=== PATIENT | female | born 1950 | race Caucasian/White ===

== ENCOUNTER 2022-03-18 10:52 | Outpatient (REF) | payer MEDICARE, SELFPAY ==
[2022-03-18 14:21] LABS: Hematocrit 40.6 % (37.0-47.0); Hemoglobin 13.3 g/dl (12.0-16.0); Mean Corpuscular HGB Conc 32.8 g/dl (31.0-35.0); Mean Corpuscular Hemoglobin 30.6 pg (27.0-33.0); Mean Corpuscular Volume 93.3 fL (80.0-98.0); Mean Platelet Volume 9.4 fL (9.4-12.3); Platelet Count 236 X10*3/uL (160-400); Red Blood Count 4.35 X10*6/uL (4.20-5.50); Red Cell Distribution Width 13.1 % (11.0-16.0); White Blood Count 5.4 X10*3/uL (4.8-10.8)
[2022-03-18 15:02] LABS: Alanine Aminotransferase 31 U/L (0-31); Alkaline Phosphatase 81 U/L (39-117); Anion Gap 14 (12-20); Aspartate Amino Transferase 28 U/L (5-31); Bilirubin Total 0.6 mg/dL (0.0-1.0); Blood Urea Nitrogen 14 mg/dL (9-16); Calcium 8.8 mg/dL (8.4-10.2); Carbon Dioxide 28 mmol/L (22-29); Chloride 106 mmol/L (96-108); Estimated Glomerular Filt Rate > 60; Glucose Fasting 94 mg/dL (60-99); Potassium 4.5 mmol/L (3.3-5.1); Sodium 143 mmol/L (135-145); Total Protein 6.5 g/dL (6.5-8.0)
[2022-03-18 15:23] LABS: TSH reflex Free T4 0.39 uIU/mL (0.32-4.0)
[2022-03-18 15:38] LABS: Folate 17.1 ng/mL (> or = 4.0); Vitamin B12 380 pg/mL (200-900)
[2022-03-22 12:51] LABS: Vitamin D 25-OH, D2 <4 ng/mL; Vitamin D 25-OH, D3 29 ng/mL; Vitamin D 25-OH, Total 29 ng/mL (30-100)
== END 2022-03-18 10:53 | disposition home or self-care (01) ==
LOC: HO.WFDLDS 10:52
PROVIDERS: Visit Provider Hospitalist
DX: Z00.00 Encounter for general adult medical examination without abnormal findings (principal); Z13.9 Encounter for screening, unspecified
CPT/HCPCS: 36415; 80053; 82306; 82607; 82746; 84443; 85027

== ENCOUNTER 2023-08-17 15:55 | Outpatient (AMB) | payer MEDICARE, SELFPAY ==
--- NOTE | 2023-08-17 15:59 | MHC.PC.OV ---
Vital Signs 08/17/23 16:02 Height 5 ft 6 in Weight 140 lb BMI 22.6 BP 136/82 Blood Pressure Location Lt brachial Position Sitting Pulse 79 Pulse Source Pulse Oximeter Pulse Oximetry (%) 97 Oxygen Delivery Method Room Air Intake Visit Reasons: PE/ transfer of care from [facility] Note: Patient is here as a transfer of care, needs primary care doctor. Allergies adhesive tape Adverse Reaction (Intermediate, Verified 08/17/23 16:03) Itching Tobacco use date assessed: 08/17/23 Fall risk assessment: No Falls in past year Last assessed Fall Risk: 08/17/23 HPI PE/ transfer of care from [facility] Details Transfer of Care Prior PCP:?SV Last office visit/CPE: Acute issue(s): PMHx: HLD, Anxiety/Depression, Vitamin D deficiency, learning disability, Breast CA SurgHx: Hysterectomy, Breast CA surgeries, L leg surgery FHx: Dad: Heart disease. Mom: CVA SocHx: Nonsmoker. EtOH none. Recent RSV & Flu shot. Covid shot last year. PFSH Medical History Learning disability High cholesterol Family History Mother Arthritis Other Mental health disorder Social History Housing: Condominium Patient Tobacco Use Status: Never used Tobacco e-Cigarette/Vaping Use: Never Used Current occupational status: retired Questionnaire PHQ-9 Over the last 2 weeks, how often have you been bothered by any of the following problems? 1. Little interest or pleasure in doing things: not at all 2. Feeling down, depressed, or hopeless: not at all 3. Trouble falling or staying asleep, or sleeping too much: not at all 4. Feeling tired or having little energy: not at all 5. Poor appetite or overeating: not at all 6. Feeling bad about yourself - or that you are a failure or have let yourself or your family down: not at all 7. Trouble concentrating on things, such as reading the newspaper or watching television: not at all 8. Moving or speaking so slowly that other people could have noticed. Or the opposite - being so fidgety or restless that you have been moving around a lot more than usual: not at all 9. Thoughts that you would be better off or of hurting yourself in some way: not at all Total score: 0 Source: Developed by Drs. Sabas Klein, Ebony Sullivan, Afshin Patricio and colleagues, with an educational edmundo from [employer]. Thrive Questionnaire Date Thrive assessed: 08/17/23 I am a: Patient What is your living situation today?: I have a steady place to live Within the past 12 months, did the food you bought not last and you didn't have the money to get more?: Never true Within the past 12 months, did you worry whether your food would run out before you got money to buy more?: Never true Do you have trouble paying for medicines?: No Do you have trouble getting transportation to medical appointments?: No Do you have trouble paying your heating and electricity bill?: No Do you have trouble taking care of your child, family member or friend?: No Do you have trouble with day-to-day activities such as bathing, preparing meals, shopping, managing finances, etc.?: No Are you currently unemployed and looking for a job?: No Are you interested in more education?: No THRIVE Score: 0 AUDIT C Alcohol Use Questionnaire (AUDIT-C) 1. How often do you have a drink containing alcohol?: Never 3. How often do you have six or more drinks on one occasion?: Never Total Score: 0 JENNIFER-7 AMB Questionnaire JENNIFER-7 Date JENNIFER - 7 assessed: 08/17/23 Feeling nervous, anxious, or on edge: 1 = Several days Not being able to stop or control worryin = Several days Worrying too much about different things: 1 = Several days Trouble relaxin = Not at all Being so restless that it is hard to sit still: 0 = Not at all Becoming easily annoyed or irritable: 0 = Not at all Feeling afraid as if something awful might happen: 1 = Several days Total JENNIFER-7 score (0-4 normal; 5-9 mild; 10-14 moderate; 15-21 severe): 4 Source: Developed by Ebony Easno Kurt Kroenke and colleagues, with an educational edmundo from [employer]. Physical exam (Primary Care) Vital Signs: Last Vital Signs Pulse 79 08/17/23 16:02 BP 136/82 08/17/23 16:02 Pulse Ox 97 08/17/23 16:02 Oxygen Delivery Method Room Air 08/17/23 16:02 BMI result Body Mass Index 22.6 Tobacco/Smoking Status: Tobacco use Status Tobacco use date assessed 08/17/23 08/17/23 16:09 Patient Tobacco Use Status Never used Tobacco 08/17/23 16:01 e-Cigarette/Vaping Use Never Used 08/17/23 16:09 PHQ-9: PHQ-9 Score PHQ-9: Total score 0 08/17/23 16:09 Thrive Assessment: Date of Thrive Assessment Date Thrive assessed 08/17/23 08/17/23 16:09 Assessment and Plan Assessment & Plan (1) Anxiety with depression: Code(s): F41.8 - Other specified anxiety disorders Plan: Fairly?stable?on?escitalopram.??She?also?has?a?therapist?that?she?is?seeing. Some?increased?stressors?lately.??I?let?her?know?if?she?wants?to?talk?to?me?about?adjusting?her?escitalopram?we?can?do?so. For?now,?continue?current?medication?and?follow-up?with?therapist (2) Vitamin D deficiency: Code(s): E55.9 - Vitamin D deficiency, unspecified Plan: Check?vitamin-D?level (3) High cholesterol: Code(s): E78.00 - Pure hypercholesterolemia, unspecified Plan: Currently?on?atorvastatin Check?lipid (4) History of breast cancer: Code(s): Z85.3 - Personal history of malignant neoplasm of breast Plan: Continue?mammograms (5) Laboratory exam ordered as part of routine general medical examination: Code(s): Z00.00 - Encounter for general adult medical examination without abnormal findings Plan: Check?labs Orders: Orders Complete Blood Count Auto Diff Today Z00.00 - Encounter for general adult medical examination without abnormal findings Microalbumin, Random (w Creat) Today I10 - Essential (primary) hypertension Comprehensive [place]. Panel Fast Today Z00.00 - Encounter for general adult medical examination without abnormal findings Lipid Panel Today Z00.00 - Encounter for general adult medical examination without abnormal findings UA and rflx microscopic Today Z00.00 - Encounter for general adult medical examination without abnormal findings TSH reflex Free T4 Today Z00.00 - Encounter for general adult medical examination without abnormal findings Vitamin D 25-OH Total Today E55.9 - Vitamin D deficiency, unspecified Coding Level of Care Code New Pt Level 3 (61820) Diagnoses Anxiety with depression F41.8 Vitamin D deficiency E55.9 High cholesterol E78.00 History of breast cancer Z85.3 Laboratory exam ordered as part of routine general medical examination Z00.00
[2023-08-17 16:02] VITALS: BP 136/82; PULSE 79; O2SAT 97; BMI 22.6
== END 2023-08-17 16:58 | disposition home or self-care (01) ==
PROVIDERS: PCP Hospitalist; Visit Provider Family Medicine
DX: F41.8 Other specified anxiety disorders (principal); E55.9 Vitamin D deficiency, unspecified; E78.00 Pure hypercholesterolemia, unspecified; Z85.3 Personal history of malignant neoplasm of breast; Z00.00 Encounter for general adult medical examination without abnormal findings
CPT/HCPCS: 99203

== ENCOUNTER 2023-08-18 09:07 | Outpatient (REF) | payer MEDICARE, SELFPAY ==
[2023-08-18 11:36] LABS: MANUAL DIFF FLAG NO
[2023-08-18 11:40] LABS: Appearance Urine Clear; Color Urine Yellow; Glucose Urine UA Negative (Negative); Leukocyte Esterase Urine Small (1+) (Negative); Nitrite Urine Negative (Negative); PH 7.5 (5.0-9.0); UMIC TRIGGER UA YES; Urine Blood Negative (Negative); Urine Ketones Negative (Negative); Urine Protein Negative (Neg-Trace)
[2023-08-18 11:54] LABS: Basophils Percent Auto 0.5 % (0-2); Eosinophils Absolute Auto 0.2 X10*3/uL (0.0-0.4); Eosinophils Percent Auto 3.6 % (0-4); Hematocrit 40.1 % (37.0-47.0); Hemoglobin 13.2 g/dl (12.0-16.0); Imm Gran Abs Auto 0.02 X10*3/uL (0.00-0.03); Imm Gran Pct Auto 0.5 % (0.0-0.4); Lymphocytes Absolute Auto 1.3 X10*3/uL (1.2-4.9); Lymphocytes Percent Auto 29.1 % (20-40); Mean Corpuscular HGB Conc 32.9 g/dl (31.0-35.0); Mean Corpuscular Hemoglobin 30.1 pg (27.0-33.0); Mean Corpuscular Volume 91.6 fL (80.0-98.0); Mean Platelet Volume 8.8 fL (9.4-12.3); Monocytes Absolute Auto 0.4 X10*3/uL (0.1-1.2); Monocytes Percent Auto 9.5 % (2-11); Neutrophils Absolute Auto 2.5 x10*3/uL (2.0-8.3); Neutrophils Percent Auto 56.8 % (45-73); Platelet Count 229 X10*3/uL (160-400); Red Blood Count 4.38 X10*6/uL (4.20-5.50); Red Cell Distribution Width 13.3 % (11.0-16.0); White Blood Count 4.4 X10*3/uL (4.8-10.8)
[2023-08-18 11:58] LABS: Bacteria Urine None Seen (None Seen); Hyaline Casts Urine 0-2 /LPF (0-2); RBC Urine 0-2 /HPF (0-2); Squamous Epithelial Cell Urine 0-2 /HPF (0-2); WBC Urine 0-5 /HPF (0-5)
[2023-08-18 13:24] LABS: Creatinine Urine 35.76 mg/dL; Microalbumin Urine < 5.0 mg/L
[2023-08-18 15:48] LABS: Alanine Aminotransferase 44 U/L (0-31); Albumin Level 3.9 g/dL (3.5-5.0); Alkaline Phosphatase 81 U/L (39-117); Anion Gap 11 (12-20); Aspartate Amino Transferase 37 U/L (5-31); Bilirubin Total 0.6 mg/dL (0.0-1.0); Blood Urea Nitrogen 14 mg/dL (9-16); Calcium 9.1 mg/dL (8.4-10.2); Carbon Dioxide 30 mmol/L (22-29); Chloride 103 mmol/L (96-108); Cholesterol 166 mg/dL (<200); Estimated Glomerular Filt Rate > 60; Glucose Fasting 77 mg/dL (60-99); HDL Cholesterol 66 mg/dL (>40); LDL Cholesterol Calculated 83 mg/dL (<100); Potassium 4.1 mmol/L (3.3-5.1); Sodium 140 mmol/L (135-145); Total Protein 6.7 g/dL (6.5-8.0); Triglycerides 85 mg/dL (<150)
[2023-08-18 16:08] LABS: TSH reflex Free T4 0.67 uIU/mL (0.32-4.0); Vitamin D 25-OH Total 40.4 ng/mL (>30)
== END 2023-08-18 09:08 | disposition home or self-care (01) ==
LOC: HO.WFDLDS 09:07
PROVIDERS: Visit Provider Family Medicine
DX: Z00.00 Encounter for general adult medical examination without abnormal findings (principal); I10 Essential (primary) hypertension; E55.9 Vitamin D deficiency, unspecified
CPT/HCPCS: 36415; 80053; 80061; 81001; 82043; 82306; 82570; 84443; 85025

== ENCOUNTER 2023-10-26 13:52 | Outpatient (AMB) | payer MEDICARE, SELFPAY ==
[2023-10-26 13:55] VITALS: BP 120/80; PULSE 100; O2SAT 98; BMI 23.1
--- NOTE | 2023-10-26 13:55 | MHC.PC.OV ---
Vital Signs 10/26/23 13:55 Height 5 ft 6 in Weight 143 lb BMI 23.1 BP 120/80 Blood Pressure Location Lt brachial Position Sitting Pulse 100 Pulse Source Pulse Oximeter Pulse Oximetry (%) 98 Oxygen Delivery Method Room Air Intake Visit Reasons: extended exam Intake Note: Patient is here for an extended exam. She is inquiring about the age of foregoing colonoscopy. Allergies adhesive tape Adverse Reaction (Intermediate, Verified 10/26/23 13:59) Itching Tobacco use date assessed: 10/26/23 Fall risk assessment: 1 Fall in past year Last assessed Fall Risk: 10/26/23 Dental Screening Dental Screen Date: 10/26/23 Did you have a dental visit in the last 12 months?: Yes Did you have a dental problem in the last 6 months where you did not have access to dental care?: No Was dental information given to patient?: Patient has dentist HPI extended exam HPI Details 73 y/o female presents for an extended exam with f/u labs and health maintenance. Labs were drawn 08/18/23. Reviewed labs with pt. Elevated liver enzymes - AST 37 and ALT 44. Triglycerides 85. TC 166. LDL 83. HDL 66. Pt reports she had a fall where she was doing too many things at once and had missed a step. [facility] Medical History Learning disability High cholesterol Family History Mother Arthritis Other Mental health disorder Social History Housing: Condominium Patient Tobacco Use Status: Never used Tobacco e-Cigarette/Vaping Use: Never Used Current occupational status: retired Cognitive needs: No Hearing needs: No Vision needs: Yes (glasses for driving and watching TV.) Questionnaire Thrive Questionnaire Date Thrive assessed: 08/17/23 JENNIFER-7 AMB Questionnaire JENNIFER-7 Date JENNIFER - 7 assessed: 08/17/23 Source: Developed by Drs. Sabas Klein, Ebony Sullivan, Afshin Patricio and colleagues, with an educational edmundo from [employer]. Physical exam (Primary Care) Vital Signs: Last Vital Signs Pulse 100 10/26/23 13:55 BP 120/80 10/26/23 13:55 Pulse Ox 98 04/01/24 13:55 Oxygen Delivery Method Room Air 10/26/23 13:55 BMI result Body Mass Index 23.1 Tobacco/Smoking Status: Tobacco use Status Tobacco use date assessed 10/26/23 10/26/23 14:01 Patient Tobacco Use Status Never used Tobacco 10/26/23 14:01 e-Cigarette/Vaping Use Never Used 10/26/23 14:01 Thrive Assessment: Date of Thrive Assessment Date Thrive assessed 08/17/23 10/26/23 14:01 Assessment and Plan Assessment & Plan (1) Elevated liver enzymes: Code(s): R74.8 - Abnormal levels of other serum enzymes Plan: Mildly?elevated?liver?enzymes Encouraged?patient?to?hydrate?well.??We?will?recheck?this?in?4-6?weeks If?still?the?same?or?higher,?will?check?an?ultrasound. She?is?referred?to?Gastroenterology?already?for?a?colonoscopy?and?could?refer?her?back?for?this?as?well?if?not?resolving. (2) High cholesterol: Code(s): E78.00 - Pure hypercholesterolemia, unspecified Plan: Patient?is?on?atorvastatin Lipids?are?well?controlled (3) Hematoma: Code(s): T14.8XXA - Other injury of unspecified body region, initial encounter Plan: Mild?left?knee?hematoma?after?mechanical?trip?and?fall Resolving She?can?use?ice?and?he Call?or?return?to?office?if?not?improved (4) Fall: Code(s): W19.XXXA - Unspecified fall, initial encounter Plan: Mechanical?trip/fall No?dizziness?or?weakness (5) Osteopenia: Code(s): M85.80 - Other specified disorders of bone density and structure, unspecified site Plan: Patient?is?due?for?bone?density?in?April-ordered (6) Breast cancer screening by mammogram: Code(s): Z12.31 - Encounter for screening mammogram for malignant neoplasm of breast Plan: Due?for?mammogram?in?April Prior?mammogram?last?year?was?negative?for?malignancies?and?recommended?annual?screen (7) Screening for osteoporosis: Code(s): Z13.820 - Encounter for screening for osteoporosis Plan: Last?bone?density?in?2021?showed?osteopenia Due?in?April?for?her?next?DEXA?scan-ordered (8) Screening for colon cancer: Code(s): Z12.11 - Encounter for screening for malignant neoplasm of colon Plan: Patient?has?had?colonoscopies?every?5?years?due?to?polyps Referred?her?back?to?her?power tool repair technician She?has?some?apprehension?about?the?prep?and?I?told?her?to?discuss?with?her?power tool repair technician?at?their?next?visit (9) Normal physical exam: Code(s): Z00.00 - Encounter for general adult medical examination without abnormal findings Plan: 73-year-old?female?presents?for?an?extended?exam Stable Orders: Orders XR DEXA axial skeleton 6 Months M81.0 - Age-related osteoporosis without current pathological fracture, Z13.820 - Encounter for screening for osteoporosis MM tomosynthesis screening BI 6 Months Z12.31 - Encounter for screening mammogram for malignant neoplasm of breast Comprehensive Met. Panel Today R74.8 - Abnormal levels of other serum enzymes Referrals Gastroenterology Referral Z12.11 - Encounter for screening for malignant neoplasm of colon Coding Level of Care Code Est Pt Level 4 (75507) Diagnoses Elevated liver enzymes R74.8 High cholesterol E78.00 Hematoma T14.8XXA Fall W19.XXXA Osteopenia M85.80 Breast cancer screening by mammogram Z12.31 Screening for osteoporosis Z13.820 Screening for colon cancer Z12.11 Normal physical exam Z00.00
== END 2023-10-26 14:50 | disposition home or self-care (01) ==
PROVIDERS: PCP Hospitalist; Visit Provider Family Medicine
DX: R74.8 Abnormal levels of other serum enzymes (principal); E78.00 Pure hypercholesterolemia, unspecified; T14.8XXA Other injury of unspecified body region, initial encounter; W19.XXXA Unspecified fall, initial encounter; M85.80 Other specified disorders of bone density and structure, unspecified site; Z12.31 Encounter for screening mammogram for malignant neoplasm of breast; Z13.820 Encounter for screening for osteoporosis; Z12.11 Encounter for screening for malignant neoplasm of colon; Z00.00 Encounter for general adult medical examination without abnormal findings
CPT/HCPCS: 99214

== ENCOUNTER → 2023-11-26 16:45 | Outpatient (AMB) | payer MEDICARE, SELFPAY ==
--- NOTE | 2023-11-26 16:07 | A.OFFPC_ITS ---
Intake Visit Reasons: f/u liver enzymes Intake Note: Patient is following up on liver enzymes. Allergies povidone-iodine [From Betadine] Allergy (Mild, Verified 11/26/23 16:09) ITCHY adhesive tape Adverse Reaction (Intermediate, Verified 11/26/23 16:08) Itching Tobacco use date assessed: 11/26/23 Fall risk assessment: 1 Fall in past year Last assessed Fall Risk: 11/26/23 Dental Screening Dental Screen Date: 11/26/23 Did you have a dental visit in the last 12 months?: Yes Did you have a dental problem in the last 6 months where you did not have access to dental care?: No Was dental information given to patient?: Patient has dentist HPI f/u liver enzymes HPI Details 73 y/o female presents to f/u elevated l iver enzymes via telemedicine. Labs were drawn 11/19/23. Reviewed labs with pt. AST 29, ALT 25 - both improved. Pt reports she had fallen after getting to the door too fast. She states she feels like her balance and leg strength is fine. [facility] Medical History Learning disability High cholesterol Family History Mother Arthritis Other Mental health disorder Social History Housing: Condominium Patient Tobacco Use Status: Never used Tobacco e-Cigarette/Vaping Use: Never Used Current occupational status: retired Cognitive needs: No Hearing needs: No Vision needs: Yes (glasses for driving and watching TV.) Questionnaire Thrive Questionnaire Date Thrive assessed: 08/17/23 JENNIFER-7 AMB Questionnaire JENNIFER-7 Date JENNIFER - 7 assessed: 08/17/23 Source: Developed by Drs. Sabas Klein, Ebony Sullivan, Afshin Patricio and colleagues, with an educational edmundo from [employer]. Review of Systems Const Denies chills, Denies fatigue, Denies fever(s), Denies headache(s) and Denies weakness ENT Denies dizziness and Denies headache(s) Card Denies dyspnea Resp Denies cough, Denies dyspnea, Denies wheezing and Denies other (shortness of breath) Musc Denies numbness and Denies tingling Neuro Denies dizziness, Denies headache(s), Denies numbness, Denies tingling and D enies weakness Psych Denies anxiety and Denies depression Endo Denies fatigue Aller/Immun Denies wheezing Physical exam (Primary Care) Tobacco/Smoking Status: Tobacco use Status Tobacco use date assessed 11/26/23 11/26/23 16:12 Patient Tobacco Use Status Never used Tobacco 11/26/23 16:12 e-Cigarette/Vaping Use Never Used 11/26/23 16:12 Thrive Assessment: Date of Thrive Assessment Date Thrive assessed 08/17/23 11/26/23 16:12 Telehealth Telehealth Minutes spent on Phone/Video with Pt.: 10 Assessment and Plan Assessment & Plan (1) Elevated liver enzymes: Code(s): R74.8 - Abnormal levels of other serum enzymes Plan: Encouraged?patient ?to?increase?her?hydration?and?liver?enzymes?have?returned?to?normal?range. Continue?increased?hydration?though?she?says?she?would?like?to?decrease?it?some We?can?follow-up?on?liver?enzymes?again?at?a?subsequent?lab?check (2) Fall: Code(s): W19.XXXA - Unspecified fall, initial encounter Plan: Patient?has?had?a?2nd?fall.??First?fall?was?mechanical?and?she?says?2nd?fall?was ?similar. She?has?change?strategies?on?how?she?is?getting?through?her?doorway. She?is?undergoing?physical?therapy?for?mild?shoulder?sprain She?will?let?me?know?if?she?continues?to?have?any?difficulties?with?imbalance?or ?falls. Coding Level of Care Code Tele Est Pt Level 2 (74144) Diagnoses Elevated liver enzymes R74.8 Fall W19.XXXA
== END ==
PROVIDERS: PCP Hospitalist; Visit Provider Family Medicine
DX: R74.8 Abnormal levels of other serum enzymes (principal); W19.XXXA Unspecified fall, initial encounter
CPT/HCPCS: 99212

== ENCOUNTER 2023-12-09 14:43 | Outpatient (AMB) | payer MEDICARE, SELFPAY ==
--- NOTE | 2023-12-09 14:53 | AM.OFFWIN_ITS ---
Intake Vital Signs 12/09/23 14:57 Height 5 ft 6 in Weight 143 lb BMI 23.1 BP 124/62 Blood Pressure Location Rt brachial Position Sitting Respiration 14 Pulse 80 Pulse Source Pulse Oximeter Intake Visit Reasons: PAIN IN LEGS, Pain in the, Knee pain Patient Tobacco Use Status: Never used Tobacco Allergies povidone-iodine [From Betadine] Allergy (Mild, Verified 11/26/23 16:09) ITCHY adhesive tape Adverse Reaction (Intermediate, Verified 11/26/23 16:08) Itching Medication List - Last Reconciled 12/09/23 by Sue Sheikh PA-C atorvastatin 20 mg PO DAILY cholecalciferol (vitamin D3) 50 mcg PO DAILY doxycycline hyclate 20 mg PO BEDTIME escitalopram oxalate 10 mg PO DAILY melatonin mg PO .daily efjswxgw-wlw-spjm-FA-vit K-lut 4 mg iron-200 mcg-25 mcg (Centrum Minis Women 50 Plus) tabs PO zinc sulfate 50 mg PO .daily HPI PAIN IN LEGS HPI Details Patient is a 73-year-old female who presents today with complaints of left knee pain. She states a couple days ago she was walking and heard a pop in her left knee. She states she immediately experienced pain, swelling and some instability. She cannot recall if she has had surgery or injuries to this knee before. She states that she has been applying ice to her knee and that has been helpful. She states that she is able to walk around on it but it is tender if she pushes on her knee and she feels as if she is limping at times because it can hurt to walk. Fully bending the knee elicits discomfort. She states that she did not do anything to it so she does not know why this happened. She is going to select physical therapy for her shoulder already and came in today because she wants in order to go to PT for her knee. She also would like to see an orthopedic doctor at [place]. [facility] Medical History Learning disability High cholesterol Family History Mother Arthritis Other Mental health disorder Social History Housing: Condominium Patient Tobacco Use Status: Never used Tobacco e-Cigarette/Vaping Use: Never Used Current occupational status: retired Cognitive needs: No Hearing needs: No Vision needs: Yes (glasses for driving and watching TV.) Physical Exam Const Orientation/consciousness: patient oriented x3 HEENT Ears: hearing grossly normal bilaterally Neck Thyroid: Thyroid normal Lymphatic: no lymphadenopathy noted Resp Auscultation: clear to auscultation bilaterally Cardio Rate: regular rate Rhythm: regular rhythm Heart sounds: S1 normal heart sound present and S2 normal heart sound present Skin General skin exam: no rashes or lesions noted Neuro General: patient oriented x3, gait normal and no focal motor deficits Extrem Other: There is soft tissue swelling noted over the left anterior knee with increased swelling along the medial aspect. There is some swelling noted to the posterior knee. Full range of motion but full flexion and extension elicits discomfort. The knee is tender to palpation throughout the anterior aspect and posterior aspect. Negative anterior and posterior drawer test. Valgus and varus stress elicit discomfort. The calf is nontender. No lower leg swelling noted. No erythema. Able to weightbear. Assessment & Plan Assessment & Plan (1) Acute pain of left knee: Code(s): M25.562 - Pain in left knee Plan: will refer to pt xr ordered ref to Dr. Rogers per her request f/u with pcp if no improvement or if anything worsens or changes Orders: Orders PT Evaluation and Treatment Today M25.562 - Pain in left knee XR knee LT 3V Today M25.562 - Pain in left knee Referrals Orthopedics Referral M25.562 - Pain in left knee Coding Level of Care Code Est Pt Level 3 (46218) Diagnoses Acute pain of left knee M25.562
[2023-12-09 14:57] VITALS: BP 124/62; PULSE 80; RESP 14; BMI 23.1
== END 2023-12-09 15:18 | disposition home or self-care (01) ==
PROVIDERS: PCP Hospitalist; Visit Provider Physician Assistant
DX: M25.562 Pain in left knee (principal)
CPT/HCPCS: 99213

== ENCOUNTER 2024-06-28 10:28 | Outpatient (AMB) | payer MEDICARE, SELFPAY ==
--- NOTE | 2024-06-28 11:04 | MHC.PC.OV ---
Vital Signs 06/28/24 11:06 Height 5 ft 6 in Weight 146 lb 2 oz BMI 23.6 BP 118/60 Blood Pressure Location Lt brachial Position Sitting Respiration 14 Pulse 84 Pulse Source Pulse Oximeter Pulse Oximetry (%) 97 Oxygen Delivery Method Room Air Intake Visit Reasons: f/u chronic conditions Intake Note: f/u conditions Allergies povidone-iodine [From Betadine] Allergy (Mild, Verified 06/28/24 11:05) ITCHY adhesive tape Adverse Reaction (Intermediate, Verified 06/28/24 11:05) Itching Tobacco use date assessed: 11/26/23 Dental Screening Dental Screen Date: 11/26/23 HPI f/u chronic conditions HPI Details 73 y/o female presents to f/u chronic conditions. Mammogram in April looked fine. Bone density at [facility]. I do not see results for this yet. L knee pain and had been referred to ortho. She reports visiting nurse had recorded diminished pulses with her at home [facility] Medical History Learning disability High cholesterol Family History Mother Arthritis Other Mental health disorder Social History Housing: Condominium Patient Tobacco Use Status: Never used Tobacco e-Cigarette/Vaping Use: Never Used Current occupational status: retired Cognitive needs: No Hearing needs: No Vision needs: Yes (glasses for driving and watching TV.) Questionnaire Thrive Questionnaire Date Thrive assessed: 08/17/23 JENNIFER-7 AMB Questionnaire JENNIFER-7 Date JENNIFER - 7 assessed: 08/17/23 Source: Developed by Drs. Sabas Klein, Ebony Sullivan, Afshin Patricio and colleagues, with an educational edmundo from [employer]. Review of Systems Const Denies chills, Denies fatigue, Denies fever(s), Denies headache(s) and Denies weakness ENT Denies dizziness and Denies headache(s) Card Denies chest pain, Denies lightheadedness, Denies dyspnea and Denies other (Palpitations) Resp Denies cough, Denies dyspnea, Denies wheezing and Denies other ( shortness of breath) Musc Denies numbness and Denies tingling Neuro Denies dizziness, Denies headache(s), Denies numbness, Denies tingling, Denies paresthesias and Denies weakness Psych Denies anxiety and Denies depression Endo Denies fatigue Aller/Immun Denies wheezing Physical exam (Primary Care) Vital Signs: Last Vital Signs Pulse 84 06/28/24 11:06 Resp 14 06/28/24 11:06 BP 118/60 06/28/24 11:06 Pulse Ox 97 06/28/24 11:06 Oxygen Delivery Method Room Air 06/28/24 11:06 BMI result Body Mass Index 23.6 Tobacco/Smoking Status: Tobacco use Status Tobacco use date assessed 11/26/23 06/28/24 11:09 Patient Tobacco Use Status Never used Tobacco 06/28/24 11:09 e-Cigarette/Vaping Use Never Used 06/28/24 11:09 Thrive Assessment: Date of Thrive Assessment Date Thrive assessed 08/17/23 06/28/24 11:09 Const General: no acute distress and well developed Nutritional Appearance: well nourished Orientation/consciousness: patient oriented x3 HENMT Head: Yes normocephalic and Yes atraumatic Eyes General: appearance normal, both eyes and all related structures Pupils: Equal, round and reactive pupils present EOM: EOMs intact bilaterally Resp Effort & Inspection: normal respiratory effort Auscultation: clear to auscultation bilaterally Cardio Rate: regular rate Rhythm: regular rhythm Heart sounds: S1 normal heart sound present, S2 normal heart sound present, no gallops, no murmurs and no rubs Neuro General: patient oriented x3 and gait normal Cranial nerves: Yes Equal, round and reactive pupils present Psych Affect: normal affect Coding Level of Care Code Est Pt Level 4 (70078) Diagnoses Screening for osteoporosis Z13.820 Breast cancer screening by mammogram Z12.31 Screening for colon cancer Z12.11 Acute pain of left knee M25.562 Abnormal ankle brachial index (LIZZETTE) R68.89 Assessment & Plan Assessment & Plan (1) Screening for osteoporosis: Code(s): Z13.820 - Encounter for screening for osteoporosis Category: Medical Plan: Patient?says?she?had?bone?density?test?at[facility] Requesting?report (2) Breast cancer screening by mammogram: Code(s): Z12.31 - Encounter for screening mammogram for malignant neoplasm of breast Category: Medical Plan: Mammogram?showed?no?evidence?of?malignancy Will?continue?annual?screening (3) Screening for colon cancer: Code(s): Z12.11 - Encounter for screening for malignant neoplasm of colon Category: Medical Plan: Patient?had?colonoscopy?at?[facility] Recommended?5?year?follow-up?for?polyp Will?have?report?scanned?in?today (4) Acute pain of left knee: Code(s): M25.562 - Pain in left knee Category: Medical Plan: Patient?says?she?saw?new?[facility]?ortho?and?they?told?her?to?follow-up?if?symptoms?worsen Stable (5) Abnormal ankle brachial index (LIZZETTE): Code(s): R68.89 - Other general symptoms and signs Category: Medical Plan: Had?received?message?from?visiting?nurse?that?her?at-home?LIZZETTE?test?showed?diminished?circulation?at?left?lower?extremity. Checking?LIZZETTE Orders: Orders US LIZZETTE complete Today R68.89 - Other general symptoms and signs
[2024-06-28 11:06] VITALS: BP 118/60; PULSE 84; RESP 14; O2SAT 97; BMI 23.6
== END 2024-06-28 11:44 | disposition home or self-care (01) ==
LOC: HO.HMCFM 10:28
PROVIDERS: PCP Family Medicine; Visit Provider Family Medicine
DX: Z13.820 Encounter for screening for osteoporosis (principal); Z12.31 Encounter for screening mammogram for malignant neoplasm of breast; Z12.11 Encounter for screening for malignant neoplasm of colon; M25.562 Pain in left knee; R68.89 Other general symptoms and signs

== ENCOUNTER → 2024-06-28 10:28 | Outpatient (BNVA) | payer MEDICARE, SELFPAY | PROVIDERS: PCP Hospitalist; Visit Provider Family Medicine | DX: M25.562 Pain in left knee (principal); R68.89 Other general symptoms and signs | CPT/HCPCS: 99212 ==

== ENCOUNTER 2024-08-08 10:02 | Outpatient (REF) | payer MEDICARE, SELFPAY ==
[2024-08-08 11:00] LABS: MANUAL DIFF FLAG NO
[2024-08-08 11:22] LABS: Basophils Percent Auto 0.6 % (0-2); Eosinophils Absolute Auto 0.2 X10*3/uL (0.0-0.4); Eosinophils Percent Auto 3.4 % (0-4); Hematocrit 40.8 % (37.0-47.0); Hemoglobin 13.5 g/dl (12.0-16.0); Imm Gran Abs Auto 0.02 X10*3/uL (0.00-0.03); Imm Gran Pct Auto 0.4 % (0.0-0.4); Lymphocytes Absolute Auto 1.2 X10*3/uL (1.2-4.9); Lymphocytes Percent Auto 24.9 % (20-40); Mean Corpuscular HGB Conc 33.1 g/dl (31.0-35.0); Mean Corpuscular Hemoglobin 30.1 pg (27.0-33.0); Mean Corpuscular Volume 90.9 fL (80.0-98.0); Mean Platelet Volume 8.7 fL (9.4-12.3); Monocytes Absolute Auto 0.4 X10*3/uL (0.1-1.2); Monocytes Percent Auto 8.7 % (2-11); Neutrophils Absolute Auto 2.9 x10*3/uL (2.0-8.3); Platelet Count 247 X10*3/uL (160-400); Red Blood Count 4.49 X10*6/uL (4.20-5.50); White Blood Count 4.7 X10*3/uL (4.8-10.8)
[2024-08-08 12:19] LABS: Alanine Aminotransferase 27 U/L (0-31); Alkaline Phosphatase 97 U/L (39-117); Anion Gap 8 (12-20); Bilirubin Total 0.5 mg/dL (0.0-1.0); Blood Urea Nitrogen 15 mg/dL (9-16); Calcium 8.9 mg/dL (8.4-10.2); Carbon Dioxide 31 mmol/L (22-29); Chloride 108 mmol/L (96-108); Estimated Glomerular Filt Rate > 60; Glucose Fasting 86 mg/dL (60-99); Sodium 143 mmol/L (135-145); TSH reflex Free T4 0.73 uIU/mL (0.32-4.0); Total Protein 6.8 g/dL (6.5-8.0)
[2024-08-08 12:35] LABS: Aspartate Amino Transferase 27 U/L (5-31)
[2024-08-08 14:06] LABS: Appearance Urine Clear; Color Urine Yellow; Glucose Urine UA Negative (Negative); Leukocyte Esterase Urine Small (1+) (Negative); Nitrite Urine Negative (Negative); Specific Gravity - Urine 1.015 (1.005-1.025); UMIC TRIGGER UA YES; Urine Blood Negative (Negative); Urine Ketones Negative (Negative); Urine Protein Negative (Neg-Trace)
[2024-08-08 14:16] LABS: Bacteria Urine None Seen (None Seen); Hyaline Casts Urine 0-2 /LPF (0-2); RBC Urine 0-2 /HPF (0-2); Squamous Epithelial Cell Urine 0-2 /HPF (0-2); WBC Urine 0-5 /HPF (0-5)
[2024-08-08 14:35] LABS: Creatinine Urine 74.27 mg/dL; Microalbumin Urine < 5.0 mg/L
== END 2024-08-08 10:03 | disposition home or self-care (01) ==
LOC: HO.WFDLDS 10:02
PROVIDERS: Visit Provider Family Medicine
DX: Z00.00 Encounter for general adult medical examination without abnormal findings (principal); R74.8 Abnormal levels of other serum enzymes; I10 Essential (primary) hypertension
CPT/HCPCS: 36415; 80053; 81001; 81003; 82043; 82570; 84443; 85025

== ENCOUNTER → 2024-08-29 15:58 | Outpatient (BNVA) | payer MEDICARE, SELFPAY | PROVIDERS: PCP Family Medicine; Visit Provider Family Medicine ==

== ENCOUNTER → 2024-08-29 15:58 | Outpatient (AMB) | payer MEDICARE, SELFPAY ==
--- NOTE | 2024-08-29 15:52 | A.OFFPC_ITS ---
Intake Visit Reasons: f/u LIZZETTE via telemedicine Intake Note: Follow up test results. 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 Allergies povidone-iodine [From Betadine] Allergy (Mild, Verified 08/29/24 15:52) ITCHY adhesive tape Adverse Reaction (Intermediate, Verified 08/29/24 15:52) Itching Medication List - Last Reconciled 08/29/24 by El Wallace MD antiarthritic combination no.2 (glucosamine-chondroitin) mg PO atorvastatin 20 mg PO DAILY cholecalciferol (vitamin D3) 50 mcg PO DAILY doxycycline hyclate 20 mg PO BID escitalopram oxalate 10 mg PO DAILY melatonin mg PO .daily rqlxynmg-irg-gpoj-FA-vit K-lut 4 mg iron-200 mcg-25 mcg (Centrum Minis Women 50 Plus) tabs PO zinc sulfate 50 mg PO .daily Tobacco use date assessed: 11/26/23 Dental Screening Dental Screen Date: 11/26/23 HPI f/u LIZZETTE via telemedicine HPI Details 73 y/o female presents to review LIZZETTE jagdish samuels. Visiting nurse had noted abnormal at home LIZZETTE test. She had denied any claudication or pain in her left lower extremity. She denies any coldness or discoloration. VL Ankle/Branchial indices done 07/26/24. R side ankle/brancial index 1.21, within normal values. L side ankle/brancial index 1.27, within normal values. Normal study at rest. [facility] Medical History Learning disability High cholesterol Family History Mother Arthritis Other Mental health disorder [facility] Tobacco Use Status: Never used Tobacco e-Cigarette/Vaping Use: Never Used Current occupational status: retired Cognitive needs: No Hearing needs: No Vision needs: Yes (glasses for driving and watching TV.) Questionnaire Thrive Questionnaire Date Thrive assessed: 08/17/23 JENNIFER-7 AMB Questionnaire JENNIFER-7 Date JENNIFER - 7 assessed: 08/17/23 Source: Developed by Drs. Sabas Klein, Ebony Sullivan, Afshin Patricio and colleagues, with an educational edmundo from [employer]. Review of Systems Const Denies chills, Denies fatigue, Denies fever(s), Denies headache(s) and Denies weakness ENT Denies dizziness and Denies headache(s) Card Denies dyspnea Resp Denies cough, Denies dyspnea, Denies wheezing and Denies other (shortness of breath) Musc Denies numbness and Denies tingling Neuro Denies dizziness, Denies headache(s), Denies numbness, Denies tingling and Jitendra es weakness Psych Denies anxiety and Denies depression Endo Denies fatigue Aller/Immun Denies wheezing Physical exam (Primary Care) Tobacco/Smoking Status: Tobacco use Status Tobacco use date assessed 11/26/23 08/29/24 15:56 Patient Tobacco Use Status Never used Tobacco 08/29/24 15:56 e-Cigarette/Vaping Use Never Used 08/29/24 15:56 Thrive Assessment: Date of Thrive Assessment Date Thrive assessed 08/17/23 08/29/24 15:56 Telehealth Telehealth Minutes spent on Phone/Video with Pt.: 4 Coding Level of Care Code Tele Est Pt Level 2 (45875) Diagnoses Abnormal ankle brachial index (LIZZETTE) R68.89 Assessment & Plan Assessment & Plan (1) Abnormal ankle brachial index (LIZZETTE): Code(s): R68.89 - Other general symptoms and signs Category: Medical Plan: Ankle?brachial?indices?are?normal?bilaterally despite?initial?test?by?visiting?nurse?which?prompted?formal?test?at?ultrasound. No?concerns?and?patient?has?no?symptoms. She will let me know if anything changes Orders: Orders Lipid Panel Today Z00.00 - Encounter for general adult medical examination without abnormal findings TSH reflex Free T4 Today Z00.00 - Encounter for general adult medical examination without abnormal findings Comprehensive [place]. Panel Fast Today Z00.00 - Encounter for general adult medical examination without abnormal findings Complete Blood Count Auto Diff Today Z00.00 - Encounter for general adult medical examination without abnormal findings Microalbumin, Random (w Creat) Today I10 - Essential (primary) hypertension UA and rflx microscopic Today Z00.00 - Encounter for general adult medical examination without abnormal findings
--- OUTSIDE RECORDS SUMMARY | 2024-08-29 17:16 | XMS_ITS | Clinical Summary ---
Author Organization [facility] Address [address] [place] [address] Care Team Providers Care Heater Helper Name Role Phone Unavailable Primary Care Provider Unavailabl e Social History Tobacco Use Types Packs/Day Years Used Date Smoking Tobacco: Never Assessed Sex and Gender Information Value Date Recorded Sex Assigned at Not on file Gender Identity Not on file Sexual Orientation Not on file Plan of Treatment Health Maintenance Due Date Last Done Comments Hepatitis C Virus Screening 1950 DTaP/Tdap/Td Vaccines (1 - Tdap) 10/21/1967 Pneumococcal Vaccines 50+ (1 of 1 - PCV) 1998 Zoster (Shingles) Vaccine (1 of 2) 1998 RSV Vaccine 60 years and old er and Patients (1 - 1-dose 75+ series) 10/21/2023 COVID-19 Vaccine ( - 2023-2 5 season) 2024 Hepatitis B Vaccines Aged Out No long er eligible based on patient's age to complete this topic
--- OUTSIDE RECORDS SUMMARY | 2024-08-29 17:16 | XMS_ITS | Data Portability ---
Author Organization [facility] [address] Address [address] [place] [address] Assessment No assessment recorded. Plan of Treatment Reminders Order Date Submit Date Provider Last Modified By Organization Details Last Modified Time Details Appointments None recorded. Lab None recorded. Referral physical therapist referral 2023 024 [email or web address] [facility] Physical Therapy - [facility], [address], [address], [place], [address], 17:26:47 physical therapist referral 2023 024 [email or web address] [facility] Physical Therapy - [place], [address], [place], [address], 17:26:47 Procedures None recorded. Surgeries None recorded. Imaging XR, shoulder, 2 or more view 2023 [email or web address] [facility], [address] [place], [address], 17:26:47 Medication Orders None recorded. Patient TargetsNo targets recorded. Patient Instructions Encounter Date Encounter Id Patient Instructions Last Modified By Organization Details Last Modified Time 11/05/2023 [id number] shoulder pain: c are instructions [email or web address] Not available 11/05/2023 14:04:52 You are being diagnosed with a Shoulder Strain/Spasm based on your exam. Do the exercises that I gave you. The following are my recommendations to help with your symptoms: 1. Heating pad to the back of the neck and the shoulder 2. Stretch your neck and shoulder regularly 3. Try to sleep with 1 pillow and support the arm. 4. It is ok to Take Tylenol with what I gave you, but not Ibuprofen 5. I advise applying some topical Aspircream I would give this a solid 1-2 weeks to start to improve. If at this time you still aren't feeling better. I would suggest a follow up visit. Please go immediately to the Emergency room if you develop any: 1. Shortness of breath 2. Coughing up blood 3. Significant chest pain 4. or Dizziness.light headedness Thank you for using [facility]. Please feel free to contact us if you have any questions or concerns. [email or web address] Not available 11/05/2023 14:46:56 Reason for Referral Physical Therapist Referral for Sprain of shoulder rotator cuff Referring Physician: Luther Benson, Urgent Care, Encounter Date: 11/05/2023 Physical Therapist Referral for Sprain of shoulder rotator cuff Referring Physician: Luther Benson, Urgent Care, Encounter Date: 11/05/2023 Results Created Date Observation Date Name Description Value Unit Range Abnormal Flag Note LastModifiedBy Organization Detail LastModifiedTime 11/05/19 24 11/05/2023 XR, shoul morgan, 2 or more view No observ ation record ed. [facility] [address], [place], [address], 11/05/2023 17:32:09 Result Notes None recorded. Problems Name Problem SNOMED Code Status Onset Date Resolution Date Notes Provider Name and Address Organization Details Recorded Time Hyperlipidemia 96062676 Active MALCOLM LORA null, PA - [facility] 4 13:43:10 Anxiety 74319308 Active MALCOLM LORA null, PA - [facility] 4 13:43:17 Problem Notes None recorded. Procedures Surgical History Date Name Laterality Status Provider Name and Address Organization Details Recorded Time Knee arthroscopy /surgery completed MALCOLM LORA PA - [facility] 11/05/2023 13:44:02 Imaging Results Imaging Date Name Status LastModified by Organiz ation Details LastModified Time 11/05/2023 XR, shoulder, 2 or more view completed [email or web address] [facility] [address] [place], [address], 11/05/2023 17:32:09 Procedure Notes None recorded. Medical Equipment None Reported. Allergies Allergen ID Allergen Name Allergen Category Reaction Reaction Severity Criticality Documentation Date Start Date Code Code System Note Provider Name and Address Organization Details Recorded Time 854860 Betadine medicatio n Not available Not available Not available 11/05/202335383 0 RxNorm MALCOLM cavazos PA - [facility] 13:42:26 Medications Name Sig Start Date Stop Date Status Note LastModified by Organization Details LastModified Time atorvastati n 20 mg tablet TAKE 1 TABLET BY MOUTH DAILY active Not Available Not Available No t Available doxycycline hyclate 20 mg tablet TAKE 1 TABLET BY MOUTH EVERY DAY active Not Available Not Available No t Available escitalopra m 10 mg tablet TAKE 1 TABLET BY MOUTH EVERY DAY active Not Available Not Available No t Available BinaxNOW COVID-19 Ag Self Test kit TEST DIRECTED TODAY 11/04 completed Not Available Not Available Not Available Vitals Date Recorded Body height Body mass index (BMI) Body weight Oxygen saturation Oxygen saturation in Arterial blood by Pulse oximetry Heart rate Respiratory rate Body temperature Systolic blood pressure Diastolic blood pressure Provider Name and Address Organization Details Last Updated DateTime 167.64 cm 23.1 kg/m2 66915.7 1 g 98 % 98 % 76 /min 18 /min 98.2 [degF] 164 mm[Hg] 85 mm[Hg] MALCOLM LORA PA - [facility] 13:45:36 Social History Question Answer Notes LastModified by Organizat ion Details LastModified Time Tobacco Smoking Status Never Smoker MALCOLM cavazos PA - [facility] 11/05/2023 13:43:44 What Is Your Level Of Alcohol Consumption? None Information not available 11/05/2023 Do You Use Any Illicit Or Recreational Drugs? No Information not available 11/05/2023 Do You Or Have You Ever Used Any Other Forms Of Tobacco Or Nicotine? No Information not available 11/05/2023 Sex: Unknown Functional Status None recorded. Mental Status None recorded. Family History Nothing Reported. Medical History No medical history recorded. Gynecological HistoryNo gynecological history recorded. Obstetrics History GPAL:G 0 P 0 0 0 0 Past Encounters Encounter ID Performer Location Encounter Start Date Encounter Closed Date Diagnosis/Indication Diagnosis SNOMED-CT Code Diagnosis ICD10 Code Diagnosis Note [id number] [address] [place] [address] [id number] 7 05/24/2017 12:47:58 05/24/2017 13:55:16 [id number] [address] [place] [address] [id number] 7 11/08/2018 13:01:56 11/08/2018 14:41:02 [id number] [address] [place] [address] [id number] 7 07/15/2018 13:42:20 07/15/2018 14:32:24 [id number] [address] [place] [address] [id number] 7 11/25/2016 10:06:09 11/25/2016 11:04:17 [id number] [address] [place] [address] [id number] 7 12/29/2017 13:15:18 12/29/2017 15:43:33 [id number] [address] [place] [address] [id number] 7 07/19/2015 14:11:50 07/19/2015 14:31:36 [id number] [facility]YES [address] [place] [address] [id number] 7 11/05/2023 13:15:42 11/05/2023 17:26:47 Pain of right shoulder joint 5285727491 3070338 M25.511 Sprain of shoulder rotator cuff 5448335513 04 S43.421A Health Concerns Section Related Observation LastModified by Organization Detai ls LastModified Time None Recorded Concern Status LastModified by Organization Details LastModified Time None Recorded Advance Directives Directive None Recorded Payers Encounter Date Sequence Insurance Name Policy Number Policy Gallo Covered Member ID Gallo Member ID Guarantor Name 05/24/2017 2 [place] [id number] Aye Crooks [id number] Aye Crooks 12/29/2017 2 [place] [facility] Aye Crooks [id number] [facility] 07/15/2018 2 [place]: [facility] Aye Crooks [id number] [facility] 11/08/2018 1 [employer] (MEDICARE REPLACEMENT PPO) [id number] [facility] [id number] [facility] 11/08/2018 2 [place] [facility] Aye Crooks [id number] [facility] 11/05/2023 1 [employer] (MEDICARE REPLACEMENT PPO) [id number] [facility] [id number] [facility] 11/05/2023 2 [place]: [facility] Aye Bella Valeriy [id number] [facility] Notes Date Note Type Note Provider Name and Address Organization Details Recorded Time 11/05/2023 text/html Shoulder UCReported bypatient.Notes:[age] Y.O pt presents with right shoulder pain from mechanical fall that occurred 2 weeks ago. Pt states her leg got caught on the door and fell forward and landed on right shoulder. Since then she states she has some pain with movement. She denies head or neck injury. ZOFIA REYES [address] [place], [address], [place] - [facility] 11/05/2023 17:40:04 OBGyn Episode No OBEpisode recorded.
== END ==
LOC: HO.HMCFM 15:58
PROVIDERS: PCP Family Medicine; Visit Provider Family Medicine
DX: R68.89 Other general symptoms and signs (principal)

== ENCOUNTER 2025-04-03 11:17 | Outpatient (REF) | payer MEDICARE, SELFPAY ==
--- OUTSIDE RECORDS SUMMARY | 2025-04-03 13:59 | XMS_ITS | Clinical Summary ---
Author Organization [facility] Address [address] [place] [address] Care Team Providers Care Transfusion Aide Name Role Phone Unavailable Primary Care Provider Unavailabl e Social History Tobacco Use Types Packs/Day Years Used Date Smoking Tobacco: Never Assessed Comments Unknown Sex and Gender Information Value Date Recorded Sex Assigned at Not on file Legal Sex Female 5:27 PM EDT Gender Identity Not on file Sexual Orientation Not on file Plan of Treatment Health Maintenance Due Date Last Done Comments Advance Care Planning 1950 Hepatitis C Virus Screening 1950 DTaP/Tdap/Td Vaccines (1 - Tdap) 10/21/1967 Pneumococcal Vaccines 50+ (1 of 1 - PCV) 1998 Zoster (Shingles) Vaccine (1 of 2) 1998 RSV Vaccine 60 years and old er and Patients (1 - 1-dose 75+ series) 10/21/2023 COVID-19 Vaccine ( - 2023-2 5 season) 2025 Hepatitis B Vaccines Aged Out No long er eligible based on patient's age to complete this topic
--- OUTSIDE RECORDS SUMMARY | 2025-04-03 13:59 | XMS_ITS ---
[facility] Care Team Organization Name Specialty Phone Email Start Date End Da te [facility] BRUNA GONZALEZ Primary Care 06/03/2022 03/14/2024
[2025-04-03 15:13] LABS: MANUAL DIFF FLAG NO
[2025-04-03 15:30] LABS: Hematocrit 39.9 % (37.0-47.0); Hemoglobin 13.4 g/dl (12.0-16.0); Imm Gran Abs Auto 0.01 X10*3/uL (0.00-0.03); Imm Gran Pct Auto 0.2 % (0.0-0.4); Lymphocytes Absolute Auto 1.3 X10*3/uL (1.2-4.9); Mean Corpuscular HGB Conc 33.6 g/dl (31.0-35.0); Mean Corpuscular Hemoglobin 30.7 pg (27.0-33.0); Mean Corpuscular Volume 91.5 fL (80.0-98.0); NRBC Abs Auto 0.000 X10*3/uL (0.0-0.012); NRBC Pct Auto 0.0 /100WBC (0.0-0.2); Platelet Count 255 X10*3/uL (160-400); Red Blood Count 4.36 X10*6/uL (4.20-5.50); White Blood Count 4.4 X10*3/uL (4.8-10.8)
[2025-04-03 16:10] LABS: Alanine Aminotransferase 25 U/L (0-31); Albumin Level 4.2 g/dL (3.5-5.0); Alkaline Phosphatase 102 U/L (39-117); Anion Gap 11 (12-20); Aspartate Amino Transferase 31 U/L (5-31); Blood Urea Nitrogen 9 mg/dL (9-16); Calcium 9.0 mg/dL (8.4-10.2); Carbon Dioxide 31 mmol/L (22-29); Chloride 108 mmol/L (96-108); Cholesterol 161 mg/dL (<200); Estimated Glomerular Filt Rate > 60; HDL Cholesterol 65 mg/dL (>40); Potassium 4.5 mmol/L (3.3-5.1); Sodium 145 mmol/L (135-145); Total Protein 6.8 g/dL (6.5-8.0); Triglycerides 63 mg/dL (<150)
[2025-04-03 18:16] LABS: Appearance Urine Clear; Glucose Urine UA Negative (Negative); PH >= 9.0 (5.0-9.0); Specific Gravity - Urine 1.010 (1.005-1.025); UMIC TRIGGER UA YES
== END 2025-04-03 11:18 | disposition home or self-care (01) ==
LOC: HO.WFDLDS 11:17
PROVIDERS: Visit Provider Family Medicine
DX: Z00.00 Encounter for general adult medical examination without abnormal findings (principal); I10 Essential (primary) hypertension
CPT/HCPCS: 36415; 80053; 80061; 81001; 82570; 84443; 85025

== ENCOUNTER 2025-05-10 16:02 | Outpatient (AMB) | payer MEDICARE, SELFPAY ==
--- NOTE | 2025-05-10 16:04 | A.OFFPC_ITS ---
Vital Signs 05/10/25 16:09 Height 5 ft 6 in Weight 147 lb 2 oz BMI 23.7 BP 120/64 Blood Pressure Location Rt brachial Position Sitting Respiration 14 Pulse 79 Pulse Source Pulse Oximeter Temp 97.8 F Temp Source Temporal Artery Scan Pulse Oximetry (%) 98 Oxygen Delivery Method Room Air Intake Visit Reasons: Physical Intake Note: Aye presents in the office today for her annual physical. Allergies povidone-iodine (From Betadine) Allergy (Mild, Verified 05/10/25 16:07) ITCHY adhesive tape Adverse Reaction (Intermediate, Verified 05/10/25 16:07) Itching Medication List - Last Reconciled 05/10/25 by El Wallace MD antiarthritic combination no.2 (glucosamine-chondroitin) mg PO atorvastatin 20 mg PO DAILY cholecalciferol (vitamin D3) 50 mcg PO DAILY doxycycline hyclate 20 mg PO BID escitalopram oxalate 10 mg PO DAILY melatonin mg PO .daily gskwjgxp-dcp-xvja-FA-vit K-lut 4 mg iron-200 mcg-25 mcg (Centrum Minis Women 50 Plus) tabs PO zinc sulfate 50 mg PO .daily Tobacco use date assessed: 05/10/25 Fall risk assessment: No Falls in past year Last assessed Fall Risk: 05/10/25 Dental Screening Dental Screen Date: 05/10/25 Did you have a dental visit in the last 12 months?: Yes Did you have a dental problem in the last 6 months where you did not have access to dental care?: No Was dental information given to patient?: Patient has dentist HPI Physical HPI Details 74 y/o female presents for an extended e xam with f/u labs and health maint. Labs drawn 04/03/25. Reviewed labs with pt. Triglycerides 63. TC 161. LDL 84. HDL 65. She is on artovastatin 20mg daily. Last bone density test did show some osteopenia. HPI Comments History of Present Illness Details Documentation assistance for El Wallace MD, was provided by Benedicto Landeros, [employer] on 05/10/2025 at 4:48 PM EST. I, Dr. Wallace, have read, observed, and verified documentation. PFSH Medical History (Reviewed 10/26/23 @ 14:01 by Estephania Farmer [facility]) Learning disability High cholesterol Family History Mother Arthritis Other Mental health disorder Social History (Updated 05/10/25 @ 16:05 by Argentina Carreno CMA) Housing: Condominium Alcohol intake: never Patient Tobacco Use Status: Never used Tobacco e-Cigarette/Vaping Use: Never Used Second Hand Smoke Exposure: No Use of substances other than those prescribed or required for medical reasons: No Current occupational status: retired Cognitive needs: No Hearing needs: No Vision needs: Yes (glasses for driving and watching TV.) Questionnaire PHQ-9 Over the last 2 weeks, how often have you been bothered by any of the following problems? 1. Little interest or pleasure in doing things: not at all 2. Feeling down, depressed, or hopeless: not at all 3. Trouble falling or staying asleep, or sleeping too much: not at all 4. Feeling tired or having little energy: not at all 5. Poor appetite or overeating: not at all 6. Feeling bad about yourself - or that you are a failure or have let yourself or your family down: not at all 7. Trouble concentrating on things, such as reading the newspaper or watching television: not at all 8. Moving or speaking so slowly that other people could have noticed. Or the opposite - being so fidgety or restless that you have been moving around a lot more than usual: not at all 9. Thoughts that you would be better off or of hurting yourself in some way: not at all Total score: 0 Depression Screening Interpretation: Negative Depression Screening Done: Yes 54694 - PHQ-9 Billing: Yes Source: Developed by Drs. Sabas Klein, Ebony Sullivan, Afshin Patricio and colleagues, with an educational edmundo from [employer]. Thrive Questionnaire Date Thrive assessed: 05/10/25 I am a: Patient What is your living situation today?: I have a steady place to live Within the past 12 months, did the food you bought not last and you didn't have the money to get more?: Never true Within the past 12 months, did you worry whether your food would run out before you got money to buy more?: Never true Do you have trouble paying for medicines?: No Do you have trouble getting transportation to medical appointments?: No Do you have trouble paying your heating and electricity bill?: No Do you have trouble taking care of your child, family member or friend?: I choose not to answer this question Do you have trouble with day-to-day activities such as bathing, preparing meals, shopping, managing finances, etc.?: No Are you currently unemployed and looking for a job?: No Are you interested in more education?: No Please select the resources that you would like help with: None Currently or been in a relationship where the following occur: No concerns reported THRIVE Score: 0 AUDIT C Alcohol Use Questionnaire (AUDIT-C) 1. How often do you have a drink containing alcohol?: Never 3. How often do you have six or more drinks on one occasion?: Never Total Score: 0 JENNIFER-7 AMB Questionnaire JENNIFER-7 Date JENNIFER - 7 assessed: 05/10/25 Feeling nervous, anxious, or on edge: 0 = Not at all Not being able to stop or control worryin = Not at all Worrying too much about different things: 0 = Not at all Trouble relaxin = Not at all Being so restless that it is hard to sit still: 0 = Not at all Becoming easily annoyed or irritable: 0 = Not at all Feeling afraid as if something awful might happen: 0 = Not at all Total JENNIFER-7 score (0-4 normal; 5-9 mild; 10-14 moderate; 15-21 severe): 0 Source: Developed by Drs. Sabas Klein, Ebony Sullivan, Afshin Patricio and colleagues, with an educational edmundo from [employer]. JENNIFER-7 Assessment Billing JENNIFER-7 Assessment Tool: JENNIFER-7 Assessment 10984 Review of Systems Const Denies chills, Denies fatigue, Denies fever(s), Denies headache(s) and Denies weakness Eyes Denies change in vision ENT Denies dizziness, Denies headache(s), Denies hearing loss, Denies nasal congestion, Denies sinus pain, Denies sinus pressure and Denies sore throat Card Denies chest pain, Denies lightheadedness, Denies dyspnea and Denies other (p alpitations) Resp Denies cough, Denies dyspnea and Denies wheezing GI Denies abdominal pain, Denies melena, Denies hematochezia, Denies change in blanquita l habits, Denies dyspepsia and Denies nausea Denies hematuria and Denies dysuria Musc Denies abnormal gait, Denies myalgias, Denies arthralgias, Denies numbness and Denies tingling Skin/Breast Denies rash, Denies unusual bruising and Denies wounds Neuro Denies abnormal gait, Denies dizziness, Denies headache(s), Denies memory loss, Denies numbness, Denies Sensory deficit (Neuro), Denies tingling and Denies weakness Psych Denies anxiety, Denies depression and Denies memory loss Endo Denies cold intolerance, Denies fatigue, Denies heat intolerance, Denies polydipsia and Denies polyuria Cecil/Lymph Denies easy bleeding and Denies easy bruising Aller/Immun Denies wheezing Physical exam (Primary Care) Vital Signs: Last Vital Signs Temp 97.8 F 05/10/25 16:09 Pulse 79 05/10/25 16:09 Resp 14 05/10/25 16:09 BP 120/64 05/10/25 16:09 Pulse Ox 98 05/10/25 16:09 Oxygen Delivery Method Room Air 05/10/25 16:09 BMI result Body Mass Index 23.7 Tobacco/Smoking Status: Tobacco use Status Tobacco use date assessed 05/10/25 05/10/25 16:11 Patient Tobacco Use Status Never used Tobacco 05/10/25 16:11 e-Cigarette/Vaping Use Never Used 05/10/25 16:11 PHQ-9: PHQ-9 Score PHQ-9: Total score 0 05/10/25 16:11 Depression Screening Interpretation: Negative Thrive Assessment: Date of Thrive Assessment Date Thrive assessed 05/10/25 05/10/25 16:11 Currently or been in a relationship where the following occur: No concerns reported Const General: no acute distress, well developed, alert and awake Nutritional Appearance: well nourished Orientation/consciousness: patient oriented x3 HENMT Head: Yes normocephalic and Yes atraumatic Ears: hearing grossly normal bilaterally and TM's normal bilaterally General nose exam: Normal external nose present and Normal nares present Mouth: Normal oral and palatal mucosa present and moist mucous membranes Teeth and gingiva: dentition normal Throat: Yes posterior oropharynx normal Eyes General: appearance normal, both eyes and all related structures Pupils: Equal, round and reactive pupils present and Pupil accommodation reflex normal EOM: EOMs intact bilaterally Neck Neck: Yes normal visual inspection, Yes no lymphadenopathy and Yes trachea midline Thyroid: Thyroid normal Carotids: no bruits Lymphatic: no lymphadenopathy noted Chest Chest palpation & inspection: normal inspection of the chest Resp Effort & Inspection: normal respiratory effort Auscultation: clear to auscultation bilaterally Cardio Rate: regular rate Rhythm: regular rhythm Heart sounds: S1 normal heart sound present, S2 normal heart sound present, no gallops, no murmurs and no rubs Bruits: no abdominal aortic bruits and no carotid bruits GI Palpation (GI): No Abdominal aortic bruit present, Soft to palpation, nontender, No hepatosplenomegaly present and No Rebound tenderness present Auscultation: normal bowel sounds General: Yes no CVA tenderness Back/Spine/Pelvis Back: no CVA tenderness Cervical Spine: cervical ROM normal and No Cervical spine tenderness Thoracic/Lumbar Spine: thoraco-lumbar ROM normal, No pain with thoraco-lumbar ROM, No thoracic spinal tenderness and No lumbar spinal tenderness Skin Lesions: no lesions Rashes: no rashes Trauma: no lacerations or abrasions Wounds: no wounds Nails: normal Neuro General: patient oriented x3 Cranial nerves: Yes Equal, round and reactive pupils present Cognition (Neuro): normal cognition Gait exam (Neuro): Normal gait present Motor exam (neuro): 5/5 motor strength present throughout Sensory Exam: No Sensory deficit (Neuro) Deep tendon reflexes (DTR's): Right patellar reflex intensity grade: 2+ and Left patellar reflex intensity grade: 2+ Extrem General: Yes normal to inspection and No edema Psych Appearance: grossly normal Affect: normal affect Attitude: cooperative Thought process: Normal thought process present Coding Level of Care Code Est Pt Level 4 (80411) Diagnoses High cholesterol E78.00 Screening for colon cancer Z12.11 Breast cancer screening by mammogram Z12.31 Screening for osteoporosis Z13.820 Normal physical exam Z00.00 Additional Codes JENNIFER-7 Assessment Billing - JENNIFER-7 Assessment Tool: JENNIFER-7 Assessment 47177 ([id number]) PHQ-9 - 25656 - PHQ-9 Billing: Yes ([id number]) Assessment & Plan Assessment & Plan (1) High cholesterol: Code(s): E78.00 - Pure hypercholesterolemia, unspecified Category: Medical Plan: Patient is on atorvastatin Lipids are well controlled Continue current medication (2) Screening for colon cancer: Code(s): Z12.11 - Encounter for screening for malignant neoplasm of colon Category: Medical Plan: Patient says she had her colonoscopy last year at [facility]. Says she is followed every 5 years Up-to-date Will request report (3) Breast cancer screening by mammogram: Code(s): Z12.31 - Encounter for screening mammogram for malignant neoplasm of breast Category: Medical Plan: Do this month for her mammogram She will call to ensure she has an appointment (4) Screening for osteoporosis: Code(s): Z13.820 - Encounter for screening for osteoporosis Category: Medical Plan: Bone density last April showed osteopenia and some decreasing of bone mineral density Encouraged good sources of calcium and vitamin-D as well as weight-bearing exercise/walking (5) Normal physical exam: Code(s): Z00.00 - Encounter for general adult medical examination without abnormal findings Category: Medical Plan: 74-year-old female presents for an extended exam Encouraged healthy diet with active lifestyle and plenty of exercise
[2025-05-10 16:09] VITALS: BP 120/64; PULSE 79; RESP 14; TEMP 36.6; O2SAT 98; BMI 23.7
--- OUTSIDE RECORDS SUMMARY | 2025-05-10 19:13 | XMS_ITS | Clinical Summary ---
Author Organization [facility] Address [address] [place] [address] Care Team Providers Care Physicist [place] Name Role Phone Unavailable Primary Care Provider [...] Vaccine (1 of 2) 1998 RSV Vaccine 50 years and old er and Patients (1 - 1-dose 75+ series) 10/21/2023 COVID-19 Vaccine ( - 2023-2 5 season) 2025 Hepatitis B Vaccines Aged Out No long er eligible based on patient's age to complete this topic
--- OUTSIDE RECORDS SUMMARY | 2025-05-10 19:13 | XMS_ITS | Data Portability ---
Author Organization [facility], [address] Address [address] [place] [address] Assessment No assessment recorded. Plan of Treatment Reminders Order Date Submit Date Provider Last Modified By Organization Details Last Modified Time Details Appointments None recorded. Lab None recorded. Referral physical therapist referral 2023 024 [email or web address] [facility] Physical Therapy - [facility], [address], [address], [place], [address], 4 17:26:47 physical therapist referral 2023 024 [email or web address] [facility] - [place], [address], [place], [address], 4 17:26:47 Procedures None recorded. Surgeries None recorded. Imaging XR, shoulder, 2 or more view 2023 [email or web address] [facility], [address] [place] [address], [address], 17:26:47 Medication Orders None recorded. Patient TargetsNo targets recorded. Patient Instructions Encounter Date Encounter Id Patient Instructions Last Modified By Organization Details Last Modified Time 11/05/2023 [id number] shoulder pain: c are instructions Not available 11/05/2023 14:04:52 You are being [...] if you have any questions or concerns. [email or web address] Not available 11/05/2023 14:46:56 Reason for Referral Physical Therapist Referral for Sprain of shoulder rotator cuff Referring Physician: Luther Benson, Urgent Care, Encounter Date: 11/05/2023 Physical Therapist Referral for Sprain of shoulder rotator cuff Referring Physician: [facility], Encounter Date: 11/05/2023 Results Created Date Observation Date Name Description Value Unit Range Abnormal Flag Note LastModifiedBy Organization Detail LastModifiedTime 11/05/19 24 11/05/2023 XR, shoul morgan, 2 or more view No observ ation record ed. [email or web address] [facility] [address], [place], [address], 11/05/2023 17:32:09 Result Notes None recorded. Problems Name Problem SNOMED Code Status Onset Date Resolution Date Notes Provider Name and Address Organization Details Recorded Time Hyperlipidemia 21006335 Active MALCOLM cavazos, PA - [facility] 4 13:43:10 Anxiety 02633690 Active MALCOLM LORA null, PA - [facility] 4 13:43:17 Problem Notes None recorded. Procedures Surgical History Date Name Laterality Status Provider Name and Address Organization Details Recorded Time Knee arthroscopy /surgery completed MALCOLM LORA PA - [facility] 11/05/2023 13:44:02 Imaging Results None recorded. Procedure Notes None recorded. Medical Equipment None Reported. Allergies Allergen ID Allergen Name Allergen Category Reaction Reaction Severity Criticality Documentation Date Start Date Code Code System Note Provider Name and Address Organization Details Recorded Time 492502 Betadine medicatio n Not available Not available Not available 11/05/202305355 0 RxNorm MALCOLM cavazos PA - [facility] 4 13:42:26 Medications Name Sig Start Date Stop [...] Heart rate Respiratory rate Body temperature Systolic And Diastolic Provider Name and Address Organization Details Last Updated DateTime 4 167.64 cm 23.1 kg/m2 47602.7 1 g 98 % 98 % 76 /min 18 /min 98.2 [degF] 164/85 mm[Hg] MALCOLM LORA PA - [facility] 4 13:45:36 Social History None recorded. Functional Status Question Answer Note LastModified by Organizat ion Details LastModified Time Do you use any illicit or recreational drugs? No Information not available 11/05/2023 Do you or have you ever used any other forms of tobacco or nicotine? No Information not available 11/05/2023 What is your level of alcohol consumption? None Information not available 11/05/2023 Mental Status None recorded. Family History Nothing Reported. Medical History No medical history recorded. Gynecological HistoryNo gynecological history recorded. Obstetrics History GPAL:G 0 P 0 0 0 0 Past Encounters Encounter ID Performer Location Encounter Start Date Encounter Closed Date Diagnosis/Indication Diagnosis SNOMED-CT Code Diagnosis ICD10 Code Diagnosis IMO Codes Diagnosis Note [id number] [facility] [address] [address] 05/24/2017 12:47:58 05/24/2017 13:55:16 [id number] [facility] [address] [place] [id number] 7 11/08/2018 13:01:56 11/08/2018 14:41:02 [id number] [facility] [address] [place] [id number] 7 07/15/2018 13:42:20 07/15/2018 14:32:[id number] [place] [address] [address] [place] [address] 7 11/25/2016 10:06:09 11/25/2016 11:04:[id number] [place] [address] [address] [place] [address]88[address]-104 7 12/29/2017 13:15:18 12/29/2017 15:43:[id number] [place] [address] [address] [place] [id number] 7 07/19/2015 14:11:50 07/19/2015 14:31:36 [id number] [facility] [address] [place] [id number] 7 11/05/2023 13:15:42 11/05/2023 17:26:47 Pain of right shoulder joint [id number] 0966681 M25.511 Sprain of shoulder rotator cuff [id number] 04 S43.421A Health Concerns Section Related Observation LastModified by Organization Detai ls LastModified Time None Recorded Concern Status LastModified by Organization Details LastModified Time None Recorded Advance Directives Directive None Recorded Payers Insurance Date Sequence Insurance Name Policy Number Policy Gallo Covered Member ID Gallo Member ID Guarantor Name 11/16/2023 1 [employer] (MEDICARE REPLACEMENT/ ADVANTAGE - PPO) [id number] 2 Aye Crooks [id number] Aye Crooks 11/12/2023 2 MEDICARE B-[place]: [facility] Aye Crooks [id number] Aye Crooks 11/29/2023 PAYMENT PLAN Aye Crooks Notes Date Note Type Note Provider Name and Address Organization Details Recorded Time 11/05/2023 text/html Shoulder UCReported by [email or web address] Y.O pt presents with right shoulder pain from mechanical fall that occurred 2 weeks ago. Pt states her leg got caught on the door and fell forward and landed on right shoulder. Since then she states she has some pain with movement. She denies head or neck injury. ZOFIA REYES [address] [place], [address], [place] - [facility] 11/05/2023 17:40:04 OBGyn Episode No OBEpisode recorded.
--- OUTSIDE RECORDS SUMMARY | 2025-05-10 19:13 | XMS_ITS | Data Portability ---
Author Organization [facility] Shahbaz Alonso [facility], [facility] Address [address] [place] [address] Assessment Encounter Date Assessment Date Assessment LastModified by Organization Details LastModified Time 02/23/2024 02/23/2024 PROBLEM: Left Knee Endstage Osteoarthritis HISTORY: The patient is a 73-year-old female who presents today specifically requesting a second opinion. The patient had previously seen Dr. Rogers. She reports that in November she began having pain in her knee. She reports significant swelling and posterior pain. She initially went to urgent care and then was referred to Dr. Rogers. she did not have surgery performed. The patient went on to have physical therapy. She has begun taking chondroitin glucosamine. She has stopped climbing stairs reciprocally. In the interval since she started these lifestyle changes patient reports a significant decrease in her overall symptom profile. Patient is very proud of participating in a home exercise program on a daily basis. Patient has not had corticosteroid or viscosupplementat ion. She does not walk with a cane or assistive device. The patient's knee symptom profile form was reviewed and is part of the medical record. PFMSH and ROS have been reviewed, updated, and is located in the patient s chart. PAST MEDICAL HISTORY: Past medical history is significant for hypercholesteremi a, anemia, anxiety, bladder infections PAST SURGICAL HISTORY: Past surgical history includes none reported MEDICATIONS: Please see intake form. ALLERGIES: Patient reports an allergy to NKDA does not report an allergy to metal, latex, Iodine, tape, or adhesives. SOCIAL HISTORY: The patient is retired. She is active tobacco, alcohol, or illegal drugs. She is single. She sees the dentist regularly. She has stairs and lives alone but has a support system PHYSICAL EXAMINATION: Please see vitals recorded below Mental status: Alert and lucid. Normal insight, affect, and grooming. [employer]ICE: Gross motor coordination is intact. No spasticity or clonus noted. Extremities: Calves are soft and nontender. Skin intact. Palpable pedal pulses equal bilaterally. ORTHOPEDIC EXAMINATION: Negative SLR tests bilaterally. Full ROM of both hips without pain. No trochanteric tenderness. Evaluation of knees: Left Knee range of motion is 0-110 degrees. Knee is stable to varus/valgus loading, anterior/posterio r drawer testing, Rich testing. No erythema, no redness. There is moderate sub patellar crepitus. Peripheral vascular, lymphatic examination, skin, neurological coordination, reflexes, and sensation are within normal limits. IMAGING: Previously obtained outside x-rays reviewed in the office today on [facility] PACS: AP of Both knees, [place] of Both Knees, and Lateral of the Left knee; demonstrate severe end-stage osteoarthritis of the Left Knee. There is [id number] articulation medially, subchondral sclerosis, osteophyte formation. There is varus deformity and there is Moderate patellofemoral involvement. There is Kellgren Uzair grade 4 osteoarthritis. It is unclear to me if these are weightbearing x-rays IMPRESSION: Left knee end-stage osteoarthritis minimally symptomatic PLAN: I reviewed with the patient surgical and nonsurgical means to control symptoms. The patient was told by Dr. Rogers she would require knee replacement surgery. She has been actively trying to avoid to avoid it. She has not had injection therapy. She has made lifestyle changes, used a home exercise program, and taken lzku-usq-[id number] supplements. She states that her symptoms are very well-controlled and she has no ongoing symptoms. At this point patient wishes to monitor her symptoms. Patient understands she can call us at any time return to the office this at that point. At that point we would initiate conservative therapy until which time symptoms were not controlled required surgical intervention. The patient knows I will be happy to meet with them at any time in order to review any additional questions or concerns that they might have. Patient was satisfied with this plan. I attempted to answer all of the patient's questions. [employer] speech recognition soup person software was used to create portions of this document. An attempt at proofreading has been made to minimize errors. Please call for corrections. elliot Not available 02/23/2024 15:28:37 Plan of Treatment Reminders Order Date Submit Date Provider Last Modified By Organization Details Last Modified Time Details Appointments None record ed. Lab None record ed. Referral None record ed. Procedures None record ed. Surgeries None record ed. Imaging None record ed. Medication Orders None record ed. Patient TargetsNo targets recorded. Patient InstructionsNo instructions recorded. Reason for Referral None Reported. Problems Name Problem SNOMED Code Status Onset Date Resolution Date Notes Provider Name and Address Organization Details Recorded Time Osteoarthri tis of left knee joint [id number] 09 Active 2023 Garrison Holley MD [address], [place], [address], [facility] 4 08:11:15 Problem Notes None recorded. Medical Equipment None Reported. Allergies Allergen ID Allergen Name Allergen Category Reaction Reaction Severity Criticality Documentation Date Start Date Code Code System Note Provider Name and Address Organization Details Recorded Time 998898 Betadine medicatio n Not available Not available Not available 02/23/2024 96326 0 RxNorm HEIDI MATAMOROS [facility] 14:41:31 491055 adhesive tape environme nt,medica tion Not available Not available Not available 02/23/2024 HEIDI MATAMOROS [facility] 14:41:37 Medications Name Sig Start Date Stop Date Status Note LastModified by Organization Details LastModified Time atorvastatin 20 mg tablet TAKE 1 TABLET BY MOUTH DAILY active Not Available Not Available Not Available doxycycline hyclate 20 mg tablet TAKE 1 TABLET BY MOUTH EVERY DAY active Not Available Not Available No t Available escitalopram 10 mg tablet TAKE 1 TABLET BY MOUTH DAILY active Not Available Not Available Not Available sodium,potas sium,mag sulfates 17.5 gram-3.13 gram-1.6 gram oral soln FOLLOW INSTRUCTION FROM GI DOCTOR active Not Available Not Available No t Available Vitals Date Recorded Body height Body mass index (BMI) Body weight Provider Name and Address Organization Details Last Updated DateTime 02/23/2024 165.1 cm 22.8 kg/m2 69142.15 g HEIDI MATAMOROS formerly [facility] 02/23/2024 14:41:17 Social History None recorded. Functional Status None recorded. Mental Status None recorded. Family History Nothing Reported. Medical History No medical history recorded. Gynecological HistoryNo gynecological history recorded. Obstetrics History GPAL:G 0 P 0 0 0 0 Past Encounters Encounter ID Performer Location Encounter Start Date Encounter Closed Date Diagnosis/Indication Diagnosis SNOMED-CT Code Diagnosis ICD10 Code Diagnosis IMO Codes Diagnosis Note [id number] [facility] [address] [place] [address] 02/23/2024 14:29:14 03/14/2024 11:57:43 Osteoarthritis of left knee joint 1250144962 06046 M17.12 Health Concerns Section Related Observation LastModified by Organization Detai ls LastModified Time None Recorded Concern Status LastModified by Organization Details LastModified Time None Recorded Advance Directives Directive None Recorded Payers Insurance Date Sequence Insurance Name Policy Number Policy Gallo Covered Member ID Gallo Member ID Guarantor Name 03/14/2024 1 [employer] (MEDICARE REPLACEMENT/ ADVANTAGE - PPO) [id number] Aye Crooks [id number] Aye Crooks OBGyn Episode No OBEpisode recorded.
== END 2025-05-10 16:59 | disposition home or self-care (01) ==
LOC: HO.HMCFM 16:03
PROVIDERS: PCP Hospitalist; Visit Provider Family Medicine
DX: E78.00 Pure hypercholesterolemia, unspecified (principal); Z12.11 Encounter for screening for malignant neoplasm of colon; Z12.31 Encounter for screening mammogram for malignant neoplasm of breast; Z13.820 Encounter for screening for osteoporosis; Z00.00 Encounter for general adult medical examination without abnormal findings

== ENCOUNTER → 2025-05-10 16:02 | Outpatient (BNVA) | payer MEDICARE, SELFPAY | PROVIDERS: PCP Hospitalist; Visit Provider Family Medicine | DX: Z00.00 Encounter for general adult medical examination without abnormal findings (principal); E78.00 Pure hypercholesterolemia, unspecified | CPT/HCPCS: 96127; 99212 ==